=== PATIENT | female | born 1955 | race Caucasian/White ===

== ENCOUNTER 2016-04-10 08:34 | Outpatient (RCR) | payer BC ==
[~2016-04-10 08:34] MED LIST: AMBIEN CR 12.12.5 MG PO; AMBIEN10 MG PO; AMOXICILLIN 8751 TAB PO; ARIMIDEX; ARIMIDEX1 MG PO; CALCIUM WITH VI1 TA1 PO; CPAP; FASLODEX250 MG/5 M IM; FLAX OIL1000 MG PO; FLEXERIL10 MG PO; FOSAMAX PO; GLIPIZIDE10 M1 PO; GLUCOPHAGE1000 MG PO; GLUCOTROL XL10 MG PO; IBRANCE125 MG PO; LEVOTHYROXIN0.075 MG PO; MELATONIN5 M1 PO; NAPROSYN500 MG PO; OMEGA 31000 MG PO; PERCOCET 325 MG1 TA2 PO; PHENERGAN 25 TA25 MG PO; PRIL40 PO; PRILOSEC10 MG PO; SYNTHROID0.075 MG/T PO; TENORMIN 2525 MG/TAB PO; TENORMIN 5050 MG/TAB PO; VITAMIN D32000 IU PO; VITAMIND3 5000 PO; [UNRECOGNIZED DRUG - OTHER]; [UNRECOGNIZED DRUG - OTHER]
== END 2016-07-09 | disposition home or self-care (01) ==
LOC: MKS.ESL.PT
DX: I97.2 Postmastectomy lymphedema syndrome (principal); C50.412 Malignant neoplasm of upper-outer quadrant of left female breast; C77.3 Secondary and unspecified malignant neoplasm of axilla and upper limb lymph nodes

== ENCOUNTER → 2016-12-09 | Outpatient (CLI) | payer BC | LOC: COL.RAD 10:16 | DX: M17.12 Unilateral primary osteoarthritis, left knee (principal); M23.301 Other meniscus derangements, unspecified lateral meniscus, left knee; M23.304 Other meniscus derangements, unspecified medial meniscus, left knee ==

== ENCOUNTER → 2017-12-31 | Outpatient (CLI) | payer BC | LOC: MC.RAD 13:34 | DX: Z12.31 Encounter for screening mammogram for malignant neoplasm of breast (principal) ==

== ENCOUNTER → 2018-12-08 | Outpatient (CLI) | payer MEDICARE, BC | LOC: COL.RAD 07:43 | DX: C50.412 Malignant neoplasm of upper-outer quadrant of left female breast (principal); R51 Headache | CPT/HCPCS: A9585 ==

== ENCOUNTER → 2019-01-12 | Outpatient (CLI) | payer MEDICARE, BC | LOC: MC.RAD 08:42 | DX: C50.912 Malignant neoplasm of unspecified site of left female breast (principal); Z17.0 Estrogen receptor positive status [ER+] ==

== ENCOUNTER → 2020-01-14 | Outpatient (CLI) | payer MEDICARE, BC | LOC: MC.RAD 09:20 | DX: Z12.31 Encounter for screening mammogram for malignant neoplasm of breast (principal) ==

== ENCOUNTER → 2021-01-18 | Outpatient (CLI) | payer MEDICARE, BC | LOC: MC.RAD 09:41 | DX: Z12.31 Encounter for screening mammogram for malignant neoplasm of breast (principal) ==

== ENCOUNTER 2021-04-25 12:37 | Outpatient (CLI) | payer MEDICARE, BC ==
[~2021-04-25] VITALS: Ht 162.6 cm; Wt 85.9 kg
[2021-04-25] MEDS ORDERED: HALCION0.25 MG PO (13:03)
[2021-04-25] MEDS ORDERED: VITAMIN B122500 MCG SL (13:04)
[2021-04-25] MEDS ORDERED: PRAVACHOL10 MG PO (13:05)
[2021-04-25] MEDS ORDERED: REQUIP 0.5MG0.5 MG PO (13:05)
[2021-04-25] MEDS ORDERED: XYZAL5 MG PO (13:06)
[2021-04-25] MEDS ORDERED: VITAMIN C500 MG PO (13:07)
[2021-04-25] MEDS ORDERED: FEMARA PO (13:07)
[2021-04-25] MEDS ORDERED: IBRANCE125 M1 PO (13:08)
[2021-04-25] MEDS ORDERED: CALCIUM 600MG+D1 TAB PO (13:08)
[2021-04-25 13:53] VITALS: BP 135/78; PULSE 58; TEMP 97.8
== END 2021-04-25 17:56 | disposition home or self-care (01) ==
LOC: EUO 12:37
DX: C50.912 Malignant neoplasm of unspecified site of left female breast (principal); M85.80 Other specified disorders of bone density and structure, unspecified site
CPT/HCPCS: J3489

== ENCOUNTER → 2021-09-19 | Outpatient (CLI) | payer MEDICARE, BC ==
[~2021-09-19] MED LIST changes: +CALCIUM 600MG+D1 TAB PO; +FEMARA PO; +HALCION0.25 MG PO; +IBRANCE125 M1 PO; +PRAVACHOL10 MG PO; +REQUIP 0.5MG0.5 MG PO; +VITAMIN B122500 MCG SL; +VITAMIN C500 MG PO; +XYZAL5 MG PO
== END ==
LOC: COL.RAD 12:29
DX: C50.412 Malignant neoplasm of upper-outer quadrant of left female breast (principal)

== ENCOUNTER 2021-10-26 12:45 | Outpatient (RCR) | payer MEDICARE, BC | END 2021-10-28 | disposition home or self-care (01) | LOC: MKS.ESL.PT | DX: C50.412 Malignant neoplasm of upper-outer quadrant of left female breast (principal) ==

== ENCOUNTER 2022-01-23 08:05 | Outpatient (RCR) | payer MEDICARE, BC | END 2022-01-28 | disposition home or self-care (01) | LOC: MKS.ESL.PT | DX: I89.0 Lymphedema, not elsewhere classified (principal); Z85.3 Personal history of malignant neoplasm of breast; Z90.12 Acquired absence of left breast and nipple ==

== ENCOUNTER 2022-04-03 08:23 | Outpatient (RCR) | payer MEDICARE, BC ==
[2022-04-26] MEDS ORDERED: GLUCOTROL10 MG PO (08:10)
[2022-04-26] MEDS ORDERED: ELIQUIS 5MG PO (08:11)
[2022-04-26] MEDS ORDERED: VALIUM 2MG T2 MG/TAB PO (08:12)
[2022-04-26] MEDS ORDERED: TENORMIN 5050 MG/TAB PO (08:13)
[2022-04-26] MEDS ORDERED: B-121000 MCG PO (08:14)
[2022-04-26] MEDS ORDERED: CLARITIN 1010 MG/TAB PO (08:17)
== END 2022-04-30 | disposition home or self-care (01) ==
LOC: MKS.ESL.PT
DX: I89.0 Lymphedema, not elsewhere classified (principal); Z85.3 Personal history of malignant neoplasm of breast; Z90.12 Acquired absence of left breast and nipple

== ENCOUNTER → 2022-05-22 | Outpatient (CLI) | payer MEDICARE, BC ==
[~2022-05-22] VITALS: Ht 162.6 cm; Wt 86.1 kg
[~2022-05-22] MED LIST changes: +B-121000 MCG PO; +CLARITIN 1010 MG/TAB PO; +ELIQUIS 5MG PO; +GLUCOTROL10 MG PO; +VALIUM 2MG T2 MG/TAB PO
[2022-05-22 07:16] VITALS: BP 163/79; PULSE 85; TEMP 98
[2022-05-22 08:05] VITALS: BP 136/74; PULSE 83
== END ==
LOC: COL.RAD 06:45
DX: J90 Pleural effusion, not elsewhere classified (principal); C50.412 Malignant neoplasm of upper-outer quadrant of left female breast
CPT/HCPCS: 19804

== ENCOUNTER 2022-06-18 07:48 | Day surgery (SDC) | payer MEDICARE, BC ==
[~2022-06-18] VITALS: Ht 162.6 cm; Wt 81.8 kg
[2022-06-18] MEDS ORDERED: VALIUM 10MG10 MG/TAB PO (08:25)
[2022-06-18 09:26] VITALS: BP 125/58; PULSE 73; TEMP 99.8
[2022-06-18 10:58] VITALS: BP 115/61; PULSE 74; TEMP 98.7
[2022-06-18] MEDS ORDERED: ELIQUIS 5MG PO (11:03)
[2022-06-18] MEDS ORDERED: NORCO 325 MG-51 TAB PO (11:04)
[2022-06-18 11:13] VITALS: BP 100/60; PULSE 72
[2022-06-18 11:28] VITALS: BP 114/61; PULSE 70
[2022-06-18 11:43] VITALS: BP 111/64; PULSE 70
[2022-06-18 11:58] VITALS: BP 127/64; PULSE 72
--- NOTE | 2022-06-18 12:10 | NUR ---
1058 RETURNS TO ROOM 3 PER CART. DROWSY, AROUSES TO VERBAL STIMULI. FAMILIARIZED WITH SURROUNDINGS. RESP UNLABORED AT REST. O2 ON VITAL SIGNS OBTAINED. BANDAID LEFT LOWER CHEST/BACK CLEAN DRY AND INTACT. GAUZE AND BANDAID RT CHEST CLEAN DRY AND INTACT. PATIENT DENIES PAIN. HOB ELEVATED 40 DEGREES. CALL LIGHT AT SIDE. IN ROOM. 1110 AROUSES EASILY. OCCASIONAL MOIST COUGH. DENIES PAIN 1125 AWAKE, ALERT. O2 OFF. TOLERATES PO WATER WITHOUT NAUSEA. CONVERSES WITH 1140 DISCHARGE INSTRUCTIONS REVIEWED. PATIENT AND VERBALIZE UNDERSTANDING. COPY PROVIDED IN DISCHARGE FOLDER. 1155 SITS ON EDGE OF BED. DRESSES WITH ASSISTANCE FROM
== END 2022-06-18 12:10 | disposition home or self-care (01) ==
LOC: SDCO 07:48
DX: C77.3 Secondary and unspecified malignant neoplasm of axilla and upper limb lymph nodes (principal); J91.0 Malignant pleural effusion; G47.33 Obstructive sleep apnea (adult) (pediatric); Z99.81 Dependence on supplemental oxygen
CPT/HCPCS: C1788; J0690; J1644; J2250; J2704; J7120

== ENCOUNTER → 2022-06-24 | Outpatient (CLI) | payer MEDICARE, BC ==
[~2022-06-24] VITALS: Ht 162.6 cm; Wt 80.3 kg
[~2022-06-24] MED LIST changes: +NORCO 325 MG-51 TAB PO; +VALIUM 10MG10 MG/TAB PO
[2022-06-24 09:23] VITALS: BP 134/80; PULSE 70; TEMP 97.3
[2022-06-24 10:15] VITALS: BP 112/62; PULSE 68
== END ==
LOC: COL.RAD 08:36
DX: C50.412 Malignant neoplasm of upper-outer quadrant of left female breast (principal)

== ENCOUNTER → 2022-07-02 | Outpatient (CLI) | payer MEDICARE, BC ==
[~2022-07-02] VITALS: Ht 162.6 cm; Wt 79.5 kg
[2022-07-02 09:07] VITALS: BP 146/76; PULSE 77; TEMP 97.3
[2022-07-02 10:05] VITALS: BP 115/71; PULSE 73
--- NOTE | 2022-07-02 10:17 | NUR ---
DR DAVISON REMOVED 1600 CC YELLOWISH FLUID FROM LEFT LUNG.
== END ==
LOC: COL.RAD 08:28
DX: C50.412 Malignant neoplasm of upper-outer quadrant of left female breast (principal)

== ENCOUNTER → 2022-07-30 | Outpatient (CLI) | payer MEDICARE, BC ==
[~2022-07-30] VITALS: Ht 162.6 cm; Wt 74.2 kg
[2022-07-30 07:30] VITALS: BP 140/78; PULSE 83; TEMP 97.3
[2022-07-30 09:08] VITALS: BP 143/80; PULSE 87
== END ==
LOC: COL.RAD 07:30
DX: C50.412 Malignant neoplasm of upper-outer quadrant of left female breast (principal); Z98.890 Other specified postprocedural states

== ENCOUNTER → 2022-08-06 | Outpatient (CLI) | payer MEDICARE, BC ==
[~2022-08-06] VITALS: Ht 162.6 cm; Wt 74.5 kg
[2022-08-06 09:09] VITALS: BP 121/70; PULSE 79; TEMP 98
[2022-08-06 10:20] VITALS: BP 139/77; PULSE 76
== END ==
LOC: COL.RAD 08:43
DX: J90 Pleural effusion, not elsewhere classified (principal); C50.412 Malignant neoplasm of upper-outer quadrant of left female breast; Z98.890 Other specified postprocedural states
CPT/HCPCS: 19804

== ENCOUNTER → 2022-08-27 | Outpatient (CLI) | payer MEDICARE, BC ==
[~2022-08-27] VITALS: Ht 162.6 cm; Wt 73.7 kg
[2022-08-27 09:10] VITALS: BP 126/80; PULSE 74; TEMP 97.7
[2022-08-27 10:05] VITALS: BP 143/77; PULSE 76
== END ==
LOC: COL.RAD 08:46
DX: C50.412 Malignant neoplasm of upper-outer quadrant of left female breast (principal); J90 Pleural effusion, not elsewhere classified

== ENCOUNTER → 2022-12-10 | Outpatient (CLI) | payer MEDICARE, BC ==
[~2022-12-10] VITALS: Ht 162.6 cm; Wt 75.0 kg
[~2022-12-10] MED LIST changes: +IRON TABLETS325 MG PO; +NEURONTIN100 MG/CAP PO
[2022-12-10 08:56] VITALS: BP 148/71; PULSE 90; TEMP 98
--- NOTE | 2022-12-10 09:27 | NUR ---
Pt returns to holding area. Not enough fluid to drain at this time. Pt dressed and out to car ambulatory.
== END ==
LOC: COL.RAD 08:40
DX: C50.412 Malignant neoplasm of upper-outer quadrant of left female breast (principal); J90 Pleural effusion, not elsewhere classified

== ENCOUNTER → 2022-12-17 | Outpatient (CLI) | payer MEDICARE, BC ==
[~2022-12-17] VITALS: Ht 162.6 cm; Wt 74.0 kg
[2022-12-17 08:51] VITALS: BP 135/68; PULSE 85; TEMP 98.1
[2022-12-17 10:35] VITALS: BP 136/80; PULSE 81
== END ==
LOC: COL.RAD 08:37
DX: C50.412 Malignant neoplasm of upper-outer quadrant of left female breast (principal)

== ENCOUNTER → 2023-01-21 | Outpatient (CLI) | payer MEDICARE, BC ==
[~2023-01-21] VITALS: Ht 162.6 cm; Wt 75.0 kg
[~2023-01-21] MED LIST changes: +L-GLUTAMINE500 M5 PO; +PEPCID AC 10MG10 MG PO
[2023-01-21 09:00] VITALS: BP 135/70; PULSE 87; TEMP 98.6
--- NOTE | 2023-01-21 10:05 | NUR ---
No fluid to drain. Pt dressed and out to car per ambulation. Procedure canceled.
== END ==
LOC: CANSCHCLI → COL.RAD 08:40
DX: C50.412 Malignant neoplasm of upper-outer quadrant of left female breast (principal); J90 Pleural effusion, not elsewhere classified

== ENCOUNTER 2023-03-19 09:00 | Inpatient (IN) | payer MEDICARE, BC ==
[2023-03-19] VITALS (527 sets, daily range): BP systolic 116–157; BP diastolic 38–113; PULSE 63–84; TEMP 102–102.4; O2SAT 91–100
[~2023-03-19] VITALS: Ht 162.6 cm; Wt 76.7 kg
[~2023-03-19 09:00] MED LIST changes: -GLUCOPHAGE1000 MG PO; +GLUCOPHAGE500 MG/TAB PO; +TRODELVY180 MG IV
[2023-03-19 09:39] LABS: BASO % 0.5 % (0.0-2.0); EOS % 0.3 % (0.0-4.0); GRAN # 4.1 K/mm3 (1.4-6.5); GRAN % 71.2 % (42.2-75.2); LYMPH # 1.2 K/mm3 (1.2-3.4); LYMPH % 20.3 % (20.0-51.0); MEAN CELL VOLUME 106 fl (80.0-100.0); MEAN CORPUSCULAR HGB CONC 33 g/dl (33.0-37.0); MEAN PLATELET VOLUME 9.6 fl (7.4-10.4); MONO # 0.4 K/mm3 (0.1-0.6); MONO % 7.2 % (1.7-9.3); PLATELET COUNT 237 K/mm3 (130-400); RED BLOOD COUNT 2.73 M/mm3 (4.10-5.30); REDCELL DISTRIBUTION WIDTH-CV 16.1 % (11.5-14.5)
[2023-03-19 09:47] LABS: PROTHROMBIN TIME 11.1 SECONDS (9.7-12.8)
[2023-03-19 09:59] LABS: ALANINE AMINOTRANSFERASE 18 U/L (0-55); ALBUMIN 3.2 gm/dL (3.4-4.8); ALKALINE PHOSPHATASE 64 U/L (40-150); ANION GAP 13 mmol/L (7-16); AST,SGOT 21 U/L (5-34); BILIRUBIN,TOTAL 0.4 mg/dL (0.2-1.2); BLOOD UREA NITROGEN 19 mg/dL (10-20); CALCIUM 9.1 mg/dL (8.4-10.2); CARBON DIOXIDE 22 mmol/L (23-31); CHLORIDE 107 mmol/L (98-107); CREATININE, serum 0.79 mg/dL (0.57-1.11); GLUCOSE 130 mg/dL (70-99); HEMATOCRIT 28.8 % (37.0-47.0); HEMOGLOBIN 9.4 g/dl (12.5-16.0); LIPASE 13 U/L (8-78); MEAN CORPUSCULAR HEMOGLOBIN 34 pg (27-31); POTASSIUM 3.6 mmol/L (3.5-4.5); SODIUM 142 mmol/L (136-145); TOTAL PROTEIN 5.9 gm/dL (6.2-8.1)
[2023-03-19 10:08] LABS: TROPONIN-I < 0.010 ng/mL (0.00-0.033)
[2023-03-19 11:53] LABS: COLLECTION METHOD IN
[2023-03-19 12:12] LABS: PH 5.5 (5.0-8.5); URINE APPEARANCE Clear (CLEAR/HAZY); URINE BLOOD Negative (NEGATIVE); URINE COLOR Yellow (YELLOW); URINE GLUCOSE Negative (NEGATIVE); URINE KETONE Negative (NEGATIVE); URINE NITRATE Negative (NEGATIVE); URINE PROTEIN(semi-quant) Negative (NEGATIVE); URINE UROBILINOGEN 0.2 E.U/dL (0.2-1.0)
[2023-03-19 12:13] LABS: URINE BACTERIA None Seen /hpf (NONE SEEN); URINE RBC 0-2 /hpf (0-2)
[2023-03-19 12:26] LABS: SQUAMOUS EPITHELIAL None Seen /hpf (0-10)
[2023-03-19 14:03] LABS: ARTERIAL BLOOD GAS HCO3 24.2 meq/L (22-26); ARTERIAL BLOOD GAS PCO2 27.5 mmHg (35-45); ARTERIAL BLOOD GAS pH 7.56 (7.35-7.45)
[2023-03-19 14:04] LABS: ARTERIAL BLD GAS O2 SATURATION 99.1 % (92-100); ARTERIAL BLD GAS TCO2 CT 25.1; ARTERIAL BLOOD GAS BASE EXCESS 2.6 (-2-2)
--- NOTE | 2023-03-19 17:08 | NUR ---
1250 PT ADMITTED FROM ED. PT ON VENTILATOR UPON ADMISSION, 7.5 ETT MEASURES 22CM AT LIP, TV 450, PEEP 5, FIO2 40%, RATE 16. OG IN PLACE MEASURES 58 CM AT LIP. PROPOFOL INFUSING TO R UPPER CHEST NABIL CATH AT 10 MCG/KG/MIN. FENTANYL DRIP AND SOFT WRIST RESTRAINTS INITIATED UPON ARRIVAL PT IS VERY AGITATED AND UNABLE TO FOLLOW DIRECTIONS. VEGAS CATHETER IN PLACE TO DEPENDENT DRAINAGE. PICC LINE PLACED TO R UPPER ARM BY AIVS NURSE. 1700 SEDATION VACATION NOT APPRORIATED AT THIS TIME. SEDATION TO REMAIN AT CURRENT LEVELS PER DR CRAIG.
--- NOTE | 2023-03-19 19:35 | NUR ---
BEDSIDE REPORT COMPLETED WITH DAUGHTER AND AT PT'S SIDE. IV INFUSIONS VERIFIED AND COOLING BLANKET IN PLACE. BED IN LOW POSITION AND CALL LIGHT WITHIN REACH. CARE PLAN REVIEWED WITH FAMILY AND ALL QUESTIONS ANSWERED AT THIS TIME. NO ADDITIONAL NEEDS ANTICIPATED OR REQUESTED.
--- NOTE | 2023-03-19 20:00 | NUR ---
PT RESTING IN BED AT THIS TIME WITH EYES CLOSED AND COOLING BLANKET ON. ASSESSMENTS COMPLETED, BED IN LOW POSITION AND CALL LIGHT WITHIN REACH. TEMP IS 102.4 AT THIS TIME AND ALL OTHER VS ARE WNL. NO ADDITIONAL NEEDS ANTICIPATED AT THIS TIME.
[2023-03-19 20:55] LABS: ARTERIAL BLD GAS O2 SATURATION 96.6 % (92-100); ARTERIAL BLD GAS TCO2 CT 24.1; ARTERIAL BLOOD GAS BASE EXCESS 1.5 (-2-2); ARTERIAL BLOOD GAS HCO3 23.3 meq/L (22-26); ARTERIAL BLOOD GAS PCO2 27.5 mmHg (35-45); ARTERIAL BLOOD GAS PO2 83.6 mmHg (80-100); ARTERIAL BLOOD GAS pH 7.55 (7.35-7.45)
--- NOTE | 2023-03-19 21:58 | NUR ---
ABG DONE AT 2049 WAS RESPIRATORY ALKALOSIS PH 7.55/ PCO2 28/ PO2 84 /HCO3 23 BE 1.5 CALLED RESULTS TO CONNOR TYLER APRN. DECREASED RR TO FROM 16-12 STILL REMAINS ON VT450 30% +5PEEP.
[2023-03-20] VITALS (1047 sets, daily range): BP systolic 95–125; BP diastolic 40–71; PULSE 54–80; TEMP 97.8–101.2; O2SAT 91–100
--- NOTE | 2023-03-20 01:49 | NUR ---
WHILE IN PATIENT'S ROOM REPLACING SUCTION CANISTERS AND TUBING, THE VENTILATOR BEGAN TO ALARM. PT NOTED TO BE BREATHING OVER THE CONTROLLED SETTING. AFTER LEAVING THE ROOM FOR 3-5 MIN, PATIENT NOTED TO BE RESTING AND VENTILATOR SETTINGS CONTINUE PROGRAMMED.
--- NOTE | 2023-03-20 02:55 | NUR ---
VENTILATOR ALARMING WHILE RN IS IN THE ROOM. RT CALLED TO ROOM AND CONFIRMS PT IS BREATHING OVER THE CONTROLLED SETTINGS AT THIS TIME. STAFF FINISHED CARES AND LEFT THE ROOM, AND ALARMING STOPPED. VS REMAIN WNL
[2023-03-20 04:37] LABS: MEAN CORPUSCULAR HGB CONC 34 g/dl (33.0-37.0); MEAN PLATELET VOLUME 9.7 fl (7.4-10.4); PLATELET COUNT 197 K/mm3 (130-400); RED BLOOD COUNT 2.46 M/mm3 (4.10-5.30); REDCELL DISTRIBUTION WIDTH-CV 15.6 % (11.5-14.5)
[2023-03-20 04:38] LABS: HEMATOCRIT 24.9 % (37.0-47.0); HEMOGLOBIN 8.5 g/dl (12.5-16.0); MEAN CELL VOLUME 101 fl (80.0-100.0); MEAN CORPUSCULAR HEMOGLOBIN 35 pg (27-31)
[2023-03-20 05:15] LABS: ALBUMIN 2.7 gm/dL (3.4-4.8); BILIRUBIN,TOTAL 0.2 mg/dL (0.2-1.2); CALCIUM 7.6 mg/dL (8.4-10.2); CREATININE, serum 0.73 mg/dL (0.57-1.11); POTASSIUM 3.7 mmol/L (3.5-4.5); TOTAL PROTEIN 5.3 gm/dL (6.2-8.1)
[2023-03-20 05:20] LABS: ARTERIAL BLD GAS O2 SATURATION 94.8 % (92-100); ARTERIAL BLD GAS TCO2 CT 23.4; ARTERIAL BLOOD GAS BASE EXCESS -1.3 (-2-2); ARTERIAL BLOOD GAS HCO3 22.3 meq/L (22-26); ARTERIAL BLOOD GAS PCO2 33.4 mmHg (35-45); ARTERIAL BLOOD GAS PO2 75.8 mmHg (80-100); ARTERIAL BLOOD GAS pH 7.44 (7.35-7.45)
[2023-03-20 06:46] LABS: BAND 2 % (0-10); LYMPHOCYTE 8 % (20.0-51.0); NEUTROPHILS 88 % (42.0-75.2); PLATELET ESTIMATE NORMAL (NORMAL)
--- NOTE | 2023-03-20 09:03 | NUR ---
smooth and burr worker composites called pt's , Alexander [phone] due to patient being intubated and in isolation. Spouse confirmed they live together in [place]. Pt sees Dr. Delgadillo and obtains medications from [facility]'s pharmacy with no difficulties. Pt uses a CPAP at home for DME and is independent with ADLS previosuly. She does not have a DPOA-HC, is already aware he is DPOA-HC. Patient was previously at home and independent.
--- NOTE | 2023-03-20 12:00 | NUR ---
Palliative care consult completed with patient's family at this time. Patient in Radiology for procedures. Met with patient's (Alexander) & daughters (Trang & Mago) with cattle care worker (Brando). Discussed current clinical status based on provider notes, pending tests, current treatments & plan of care. Discussed acute mental status changes resulting in ED visit & the need for ventilator. Family states that patient did not have a living will. Patient was fully independent in ADLs & was still able to be active in her hobbies. Discussed a meaningful recovery for the patient. Discussed goal to get patient off the ventilator, but if patient is not able to wean off the ventilator what decisions the family would need to make on her behalf. Family adamant that patient would not want to be on a ventilator prison. Adavised family that once LP & MRI results are received that there may be some hard decisions to make & they understood that with stating many times "she still has cancer" that requires treatment. Family asked about comfort care options should test results not be good; options discussed. All questions answered. did ask for client relationship consultant to see patient & that the patient is a Worship; Project Program Manager Snehal called after the meeting.
[2023-03-20] MEDS ORDERED: COMPAZINE 110 MG/TAB PO (12:29)
[2023-03-20] MEDS ORDERED: GLUCOPHAGE XR500 M1 PO (12:30)
[2023-03-20] MEDS ORDERED: REQUIP 1MG T1 MG/TAB PO (12:31)
[2023-03-20] MEDS ORDERED: GLUCOTROL XL10 MG PO (12:32)
[2023-03-20 13:04] LABS: GLUCOSE,CSF 97 mg/dL (40-70); TOTAL PROTEIN,CSF 63 mg/dL (15-45)
[2023-03-20 13:24] LABS: CSF APPEARANCE CLEAR; CSF COLOR COLORLESS; CSF RBC 108 /mm3 (0-0)
--- NOTE | 2023-03-20 13:40 | NUR ---
steam trap worker attended a palliative consult with RN Reversing Mill Roller Sera, patient's , Boom, and two daughters. Discussion was had about patient's current status, pending tests to determine illness, and future plans for care. The family was in agreement that patient would not want to be on the ventilator long-term. They all wanted to wait on the Lumbar Puncture results and MRI results before deciding. Alexander reports that patient was made a DNR this morning after discussing with Dr. Lazaro Fortune. When hospice was discussed as one of the many options, the family voiced they would not feel comfortable or able to provide hospice at their home. GEORGES informed them that if they wanted, they could tour the [facility] to view the inside. Alexander informed GEORGES and Sera that pt is Yazidi and would like the computer operations technician to see patient. Sera followed up on this after the meeting.
[2023-03-20 13:46] LABS: CSF MONONUCLEAR 91 % (70-100); CSF POLYMORPHONUCLEAR 9 % (0-6)
--- NOTE | 2023-03-20 14:02 | NUR ---
Initial visit was with family offering comfort and acknowledging grief and saddness of what is to come for their mother; Gail. Chief Engineer Drilling And Recovery called Estimate Clerk according to their wishes and set up a time for Father Saroj to come tomorrow to administer Last Rites. Later Chief Engineer Drilling And Recovery met with family at Gail's bedside and said a prayer for Gail and her family including them in "The Lord's Prayer." They were pleased that Father Saroj will come tomorrow. Chief Engineer Drilling And Recovery offered God's blessings.
--- NOTE | 2023-03-20 18:56 | NUR ---
1050 CONSENTS SIGNED FOR LUMBAR PUNCTION. 1100 PT LEFT UNIT FOR MRI, THIS NURSE AND RT ACCOMPANIED PT TO MRI. PT THEN TRANSFERED TO X-RAY FOR LP. 1300 RETURNED TO UNIT.
--- NOTE | 2023-03-20 20:00 | NUR ---
PT RESTING WITH FAMILY AT HER SIDE. REVIEWED PLAN OF CARE WITH FAMILY AND LL QUESTIONS ANSWERED AT THIS TIME. ASSESSMENTS COMPLETED AT THIS TIME. CALL LIGHT WITHIN REACH AND PT MOVED HEAD TO VOICE AND OPENS EYES, BUT DOES NOT FOLLOW COMMANDS. BED IN LOW POSITION AND VSS WITH BRADYCARDIA NOTED AND ATENOLOL HELD, CONNOR TYLER APRN NOTIFIED.
[2023-03-21] VITALS (1243 sets, daily range): BP systolic 94–145; BP diastolic 47–78; PULSE 50–113; TEMP 36.5–37.3; O2SAT 91–100
--- NOTE | 2023-03-21 00:38 | NUR ---
0000 ASSESSMENTS COMPLETED AND VENT BEGAN TO ALARM, PT ALERT AND ABLE TO TURN HER HEAD TO SOUND OF VOICE AND STARTED MOVING HER LEGS. JAYSON MCCARTHY, NOTIFIED AND FENTANYL ORDERED. FENTANYL DRIP INCREASED AT THIS TIME AND TUBE FEEDING ADJUSTED PER ORDER. BED REMAINS IN LOW POSITION AND NO ADDITIONAL NEEDS ANTICIPATED AT THIS TIME.
[2023-03-21 04:45] LABS: GRAN # 3.1 K/mm3 (1.4-6.5); LYMPH # 0.4 K/mm3 (1.2-3.4); LYMPH % 11.4 % (20.0-51.0); MEAN CELL VOLUME 99 fl (80.0-100.0); MEAN CORPUSCULAR HGB CONC 35 g/dl (33.0-37.0); MEAN PLATELET VOLUME 9.7 fl (7.4-10.4); MONO # 0.2 K/mm3 (0.1-0.6); MONO % 4.1 % (1.7-9.3); PLATELET COUNT 196 K/mm3 (130-400); RED BLOOD COUNT 2.47 M/mm3 (4.10-5.30); REDCELL DISTRIBUTION WIDTH-CV 15.6 % (11.5-14.5)
[2023-03-21 04:57] LABS: HEMATOCRIT 24.4 % (37.0-47.0); HEMOGLOBIN 8.5 g/dl (12.5-16.0); MEAN CORPUSCULAR HEMOGLOBIN 34 pg (27-31)
[2023-03-21 05:00] LABS: ALBUMIN 2.6 gm/dL (3.4-4.8); BILIRUBIN,TOTAL 0.2 mg/dL (0.2-1.2); CALCIUM 7.9 mg/dL (8.4-10.2); CREATININE, serum 0.72 mg/dL (0.57-1.11); POTASSIUM 3.5 mmol/L (3.5-4.5); TOTAL PROTEIN 5.1 gm/dL (6.2-8.1)
[2023-03-21 05:05] LABS: ARTERIAL BLD GAS O2 SATURATION 97.1 % (92-100); ARTERIAL BLD GAS TCO2 CT 24.8; ARTERIAL BLOOD GAS BASE EXCESS 0.9 (-2-2); ARTERIAL BLOOD GAS HCO3 23.9 meq/L (22-26); ARTERIAL BLOOD GAS PCO2 31.8 mmHg (35-45); ARTERIAL BLOOD GAS PO2 101.6 mmHg (80-100); ARTERIAL BLOOD GAS pH 7.49 (7.35-7.45)
--- NOTE | 2023-03-21 05:39 | NUR ---
SEDATION VACATION NOT COMPLETED DUE TO RASS SCORE FLUCTUATION OVER THE SHIFT. PATIENT AWAKE AND ABLE TO LOOK TOWARDS VOICE DURING SHIFT AND MEDICATIONS WERE TITRATED TO GAIN GOAL SEDATION EFFECT. CONNOR TYLER APRN NOTIFIED OF EVENTS.
--- NOTE | 2023-03-21 07:00 | NUR ---
Report recevied from ROCIO Feliz. Reviewed labs and IV gtts. POC reviewed. Pt intubated and sedated. Restraints in placed. Will continue with POC.
--- NOTE | 2023-03-21 11:00 | NUR ---
Pt opening eyes and looking around. Pt able to follow commands at this time and nod head appropirately. Updated Dr. Fortune. Pt restless and precedex orderd by Dr. Fortune.
--- NOTE | 2023-03-21 11:53 | NUR ---
Follow-up visit; spoke with patient's family and looked in on Gail whom daughter stated was responding to them a bit more today than yesterday when Abrasive Mixer called , by their request. Daughter was wondering if she should have requested though Abrasive Mixer said will pray accordingly. She thanked Abrasive Mixer for looking in on mom.
--- NOTE | 2023-03-21 17:22 | NUR ---
Sedation vacation not preformed, pt wakes up and follows commands. Plans to wean seation in AM for breathing trial.
[2023-03-22] VITALS (1229 sets, daily range): BP systolic 102–191; BP diastolic 50–93; PULSE 53–101; TEMP 36.7–36.9; O2SAT 77–100
[2023-03-22 04:50] LABS: ARTERIAL BLD GAS O2 SATURATION 94.5 % (92-100); ARTERIAL BLD GAS TCO2 CT 25.3; ARTERIAL BLOOD GAS HCO3 24.1 meq/L (22-26); ARTERIAL BLOOD GAS PCO2 41.6 mmHg (35-45); ARTERIAL BLOOD GAS PO2 76.8 mmHg (80-100); ARTERIAL BLOOD GAS pH 7.38 (7.35-7.45)
[2023-03-22 05:41] LABS: BASO % 0.2 % (0.0-2.0); GRAN # 4.3 K/mm3 (1.4-6.5); GRAN % 84.2 % (42.2-75.2); LYMPH # 0.4 K/mm3 (1.2-3.4); LYMPH % 8.5 % (20.0-51.0); MEAN CELL VOLUME 103 fl (80.0-100.0); MEAN CORPUSCULAR HGB CONC 34 g/dl (33.0-37.0); MEAN PLATELET VOLUME 9.8 fl (7.4-10.4); MONO # 0.3 K/mm3 (0.1-0.6); MONO % 5.9 % (1.7-9.3); PLATELET COUNT 179 K/mm3 (130-400); RED BLOOD COUNT 2.37 M/mm3 (4.10-5.30); REDCELL DISTRIBUTION WIDTH-CV 15.5 % (11.5-14.5)
[2023-03-22 05:46] LABS: HEMATOCRIT 24.5 % (37.0-47.0); HEMOGLOBIN 8.2 g/dl (12.5-16.0); MEAN CORPUSCULAR HEMOGLOBIN 35 pg (27-31)
[2023-03-22 06:00] LABS: ALBUMIN 2.4 gm/dL (3.4-4.8); BILIRUBIN,TOTAL 0.1 mg/dL (0.2-1.2); CALCIUM 7.6 mg/dL (8.4-10.2); CREATININE, serum 0.72 mg/dL (0.57-1.11); POTASSIUM 3.8 mmol/L (3.5-4.5); TOTAL PROTEIN 4.9 gm/dL (6.2-8.1)
--- NOTE | 2023-03-22 06:56 | NUR ---
PATIENT REMAINS STABLE ON ROUNDS. SEDATION LIGHTENED OVER NIGHT. NO SIGN OF DISTRESS AT THIS TIME.
--- NOTE | 2023-03-22 07:00 | NUR ---
Report received from ROCIO Mercedes. Reviewed gtts and labs. Tube feeding off and sedation on standby. Pt drowsy but opens eyes and can follow commands. Will notify RT when pt more awake and can try cpap. Will continue with POC.
--- NOTE | 2023-03-22 07:55 | NUR ---
pt placed on cpap by RT. pt tolearting cpap well. Sedation is off. Precedex is on at low dose to halp with anxiety. cpap for 1 hour as tolerated. Will continue with POC.
--- NOTE | 2023-03-22 09:21 | NUR ---
PT EXTUBATED @ 0912 TO 3 LPM OM PER
--- NOTE | 2023-03-22 09:25 | NUR ---
Pt tolerated cpap without issues. Dr. Fortune at bedside and ordered extubation. Pt extubated at 0912 to 3L oxymask. Pt able to state name. Voice is soft. Encouraged pt to rest voice for a while. Pt verbalized understanding. All sedation off including precedex. IVF and antibiotics infusing. OG removed with extubation. Suction within reach. Call light within reach. Will continue with POC.
--- NOTE | 2023-03-22 14:22 | NUR ---
Pt is confused. Pt about to state date but struggles with year. Pt knows its 2022 and february and she is in a hospital in [place], but unsure of why. Pt states she is seeing mist and lines on the wall. Pt easily redirectable at this time. Family at bedside. Pt on 3LNC. Lungs are CTA. Pt voice is hoarse and has hoarse cough. Denies any Shortness of breath. Call light within reach. Will continue with POC.
--- NOTE | 2023-03-22 16:38 | NUR ---
Pt having some nausea and vomiting. yellow/bile colored vomit noted. Zofran admistered at 1415. Pt still having some nausea and vomiting. Notified Dr. Fortune and new orders placed.
--- NOTE | 2023-03-22 20:41 | NUR ---
WAS AT THE BEDSIDE AT THE START OF MY SHIFT. HE HAS GONE HOME FOR THE NIGHT. PT IS RESTING QUIETLY AT THIS TIME. NAUSEA HAS IMPROVED SINCE COMPAZINE WAS GIVEN. STATES PT TAKES COMPAZINE AT HOME. STATES THAT TWITCHING STARTED WITH HER LAST CHEMO. NO SIGN OF DISTRESS AT THIS TIME.
[2023-03-23] VITALS (760 sets, daily range): BP systolic 125–167; BP diastolic 51–73; PULSE 55–78; TEMP 98.2–99.4; O2SAT 76–99
--- NOTE | 2023-03-23 06:37 | NUR ---
PT NAUSEATED AND HAD EMESIS OVERNIGHT. SYNTHROID HELD THIS MORNING. PT MAY NEED EVALUATED FOR ASPIRATION. PT HAS SPASTIC/JERKY MOTIONS THAT STARTED AFT HER LAST CHEMO ACCORDING TO THE . STABLE ON ROUNDS. NO SIGN OF DISTRESS AT THIS TIME.
--- NOTE | 2023-03-23 07:45 | NUR ---
Patient resting in bed; Awake and alert. Responds appropriately to verbal commands, and able to answer most orientation questions appropriately. Patient's movements are slightly spastic, however, able to move all extremieites without difficulty. VS stable. Call light left within reach.
[2023-03-23 07:54] LABS: CREATININE, serum 0.61 mg/dL (0.57-1.11); POTASSIUM 3.2 mmol/L (3.5-4.5)
--- NOTE | 2023-03-23 13:00 | NUR ---
TYREL ARRIVED FROM ICU, VSS. PATIENTS AT BEDSIDE, PATIENT DENIES ANY NEEDS OR COMPLIANTS AT THIS TIME. CALL LIGHT WITHIN REACH, FALL PRECAUTIONS IN PLACE.
--- NOTE | 2023-03-23 13:10 | NUR ---
Transfered up to medical floor via wheelchair. Two assist required, but tolerated transfer well. Met tech in room 355 upon arrival.
--- NOTE | 2023-03-23 16:00 | NUR ---
PATIENT VEGAS CATHETER REMOVED, PATIENT TOLERATED WELL.
--- NOTE | 2023-03-23 18:48 | NUR ---
PATIENT IS A 1 ASSIST TO THE COMMODE. SHE IS STILL UNDSTEADY ON HER FEET AND DIZZY WHEN UP. PATIENTS FAMILY AT BEDSIDE. PATIENT HAS NO FURTHER NEEDS OR COMPLAINTS AT THIS TIME.
[2023-03-24] VITALS (7 sets, daily range): BP systolic 144–171; BP diastolic 46–62; PULSE 55–80; TEMP 97.1–98.8
--- NOTE | 2023-03-24 05:20 | NUR ---
ASSESSMENT COMPLETE FOR INFLATABLE BUILDINGS LAMINATOR. PT HAD A UNWITNESSED FALL. PT SUSTAINED AN ABRASION TO RIGHT KNEE. PT DENIED HITTING HER HEAD. VSS. HOSPITALIST, LONG TERM, CHARGE NURSE AND PT'S CALLED. HOSPITALIST TO BEDSIDE TO ASSESS PT. NO NEW ORDERS AT THIS TIME. PT DENIED PAIN OR ANY OTHER INJURIES. PT DENIED CHEST PAIN, PALPITATIONS, SOB, N,V,D OR DIZZINESS. FALL PRECAUTIONS IN PLACE. BED ALARM ON. CALL LIGHT WITHIN REACH.
--- NOTE | 2023-03-24 07:14 | NUR ---
PATIENT AWAKE AND ALERT, RESTING IN BED. PATIENT DENIES ANY NEEDS OR COMPLAINTS AT THIS TIME. FALL PRECAUTIONS IN PLACE, CALL LIGHT WITHIN REACH.
[2023-03-24 07:54] LABS: MEAN CELL VOLUME 100 fl (80.0-100.0); MEAN CORPUSCULAR HGB CONC 35 g/dl (33.0-37.0); MEAN PLATELET VOLUME 9.6 fl (7.4-10.4); PLATELET COUNT 217 K/mm3 (130-400); RED BLOOD COUNT 2.47 M/mm3 (4.10-5.30); REDCELL DISTRIBUTION WIDTH-CV 15.6 % (11.5-14.5)
[2023-03-24 08:09] LABS: HEMATOCRIT 24.6 % (37.0-47.0); HEMOGLOBIN 8.6 g/dl (12.5-16.0); MEAN CORPUSCULAR HEMOGLOBIN 35 pg (27-31)
[2023-03-24 08:12] LABS: ALBUMIN 2.4 gm/dL (3.4-4.8); BILIRUBIN,TOTAL 0.3 mg/dL (0.2-1.2); CALCIUM 8.5 mg/dL (8.4-10.2); CREATININE, serum 0.57 mg/dL (0.57-1.11); MAGNESIUM 1.5 mg/dL (1.6-2.6); PHOSPHOROUS 2.9 mg/dL (2.3-4.7); POTASSIUM 3.3 mmol/L (3.5-4.5); TOTAL PROTEIN 5.1 gm/dL (6.2-8.1)
--- NOTE | 2023-03-24 12:42 | NUR ---
MD INFORMED PATIENT COMPLAINING OF A HEADACHE. TO PLACE ORDER
--- NOTE | 2023-03-24 14:56 | NUR ---
PHYSICAN INFORMED PATIENT STILL EXPIERNECING A SEVER HEADACHE, PATIENT THINKS SHE HAS A MIGHRAIN. ONE NORCO AND 100MG TYLENOL HAS NOT HELPED WITH THE PAIN. TORB OXYCODONE 5MG TABLET PO X1.
--- NOTE | 2023-03-24 17:00 | NUR ---
PATIENT DEACCESSED HER PORT, BY ACCIDENTLY PULLING IT OUT. NOITIFIED. ALSO INFORMED PER FAMILY MEMBER PATIENT HAS STATED SHE SEES A DOG IN HER ROOM, BARKING AT HER.
--- NOTE | 2023-03-24 20:05 | NUR ---
Did give Reglan IV for nause/vomiting at this time-- just ate some supper of sandwich and applesause and immediately started vomiting-
--- NOTE | 2023-03-24 20:30 | NUR ---
Initial shift assessment done- at bedside, pt is alert/tentative, slow to respond at times, when asked birthday did not know the year/ o2 at 1L/nc with sats 93-95%, on room air was 85%,,, Up to BSC with 2 assists/very weak and does not always follow commands/at times more alert than others. PICC to EL with NS ay 75cc/hr, Tele on SB/ST. Bed alarm on, call light in reach- does not ever use the call light- just gets up!
--- NOTE | 2023-03-24 21:45 | NUR ---
Patient needing to get up to BSC with 2 assists- not really following commands/looking dazed defintitely confused- back to bed,, all vitals stable, o2 95% on the 1L/nc, wants to just sleep-- will continue to assess.
--- NOTE | 2023-03-25 00:05 | NUR ---
Up to BSC, more alert now//following commands and oriented to person place and approx time-- denies any pain. Denies nausea.
[2023-03-25 04:09] VITALS: BP 125/68; PULSE 65; TEMP 97.3
--- NOTE | 2023-03-25 06:25 | NUR ---
Did sleep for a few hours. VSS. Was up to BSC every hour during the night-- had over 3000cc out of urine this shift. Alert this am, in good spirits, talkative, overall oriented.
--- NOTE | 2023-03-25 07:00 | NUR ---
PATIENT AWAKE AND ALERT, RESTING IN BED. PATIENTS DAUGHTER AT BEDSIDE. PATIENT DENIES ANY NEEDS OR COMPLAINTS AT THIS TIME. FALL PRECAUTIONS IN PLACE. BED ALARM ON.
[2023-03-25 08:20] VITALS: BP 150/61; PULSE 63; TEMP 98.8
[2023-03-25 11:20] VITALS: BP 145/63; PULSE 99; TEMP 98.5
--- NOTE | 2023-03-25 13:00 | NUR ---
PATIENT AWAKE AND ALERT,RESTING IN BED. PATIENT DENIES ANY NEEDS OR COMPLAINTS AT THIS TIME. PATIETNS AT BEDSIDE. CALL LIGHT WTIHIN REACH, BED ALARM ON, FALL PRECAUTIONS IN PLACE.
[2023-03-25 16:11] VITALS: BP 142/60; PULSE 73; TEMP 98.2
--- NOTE | 2023-03-25 17:30 | NUR ---
PATIENT AWAKE AND ALERT, SITTING UP IN BED. PATEINTS AT BEDSIDE, NO NEEDS OR COMPLAINTS AT THIS TIME. FALL PRECAUTIONS IN PLACE.
--- NOTE | 2023-03-25 20:00 | NUR ---
UPON SHIFT ASSESSMENT, COLLINS WAS AWAKE AND HAD BEDSIDE. SHE IS AXO X 3 TO SELF, PLACE AND DX, HOWEVER, STATES THAT IT'S DIFFICULT FOR HER TO COMPREHEND HOW "...THREE DAYS AGO I WAS SOMEWHERE ELSE." SHE DENIES SOA AND CHEST PAIN. O2 NC AT 1L. VSS ARE WNL AND TELE IS NS. CALL LIGHT WITHIN REACH AND BED ALARM ON.
[2023-03-25 20:13] VITALS: BP 144/62; PULSE 75; TEMP 98.5
[2023-03-25 23:53] VITALS: BP 127/83; PULSE 66; TEMP 98.5
[2023-03-26 04:06] VITALS: BP 137/64; PULSE 66; TEMP 98.1
--- NOTE | 2023-03-26 05:50 | NUR ---
PATIENT HAD MILD NOSE BLEED. REMOVED NC O2 1L, PATIENT SAT STABLE AT 94%. WILL REASSESS.
--- NOTE | 2023-03-26 06:00 | NUR ---
THROUGH THE NIGHT, COLLINS REMAINED STABLE WITH NO EMERGENT STATUS CHANGES. SHE WAS REMOVED FROM 1L NC O2 AND HER O2 SAT IS @ 94% ON RA SHE REMAINED AXO X 3 WITH 1 OCCASION ON MILD CONFUSION (TIME LAPSE R/T ICU TRANSFER). VSS ARE WNL, NS ON TELE. BED ALARM ON, CALL LIGHT WITHIN REACH
[2023-03-26 07:54] VITALS: BP 150/69; PULSE 73; TEMP 98.4
--- NOTE | 2023-03-26 09:30 | NUR ---
PT SITTING IN CHAIR UPON ENTERING, AT BEDSIDE. ASSESSMENT DONE, MEDS GIVEN PER ORDER. PT ORIENTED TO PERSON, PLACE AND TIME BUT SOME CONFUSED SPEECH NOTED WHEN PT TALKING TO . DURING THE CONFUSED SPEECH STATES "SHES STILL A LITTLE OFF". PT ON ROOM AIR, DENIES PAIN AT THIS TIME AND HAS A LEFT CHEST PORT THAT IS NOT ACCESSED. PT HAS A CLAMPED DUAL LUMEN PICC TO RIGHT UPPER ARM, BOTH PURPLE AND RED PORTS FLUSH WELL WITH BLOOD RETURN. PTS REPORTS A RECENT FALL DURING PTS HOSPITAL STAY HERE AND PT HAS AN ABRASION TO RIGHT KNEE AND A BRUISE TO LEFT KNEE. PTS LUNG BASES DIMINISHED BILATERALLY. PTS LEFT EYE IS TWITCHING AND WHEN ASKED ABOUT IT PT STATES THAT IT IS NORMAL FOR HER AND HAPPENS ON OCCASION. PT DENIES NEEDS AT THIS TIME. CHAIR ALARM ON AND CALL LIGHT IN REACH
--- NOTE | 2023-03-26 10:55 | NUR ---
PATIENT DOES NOT QUALIFY FOR HOME OXYGEN, SPO2 DID NOT DROP BELOW 96%.
[2023-03-26 11:36] VITALS: BP 102/82; PULSE 79; TEMP 98.4
--- NOTE | 2023-03-26 13:27 | NUR ---
PT TRANSFERRED FROM CHAIR TO BED INDEPENDENTLY. ACYCLOVIR STARTED IN PICC PURPLE PORT. PT DENIES NEEDS AT THIS TIME. CALL LIGHT IN REACH, BED ALARM ON, BED IN LOWEST POSITION.
[2023-03-26 15:04] VITALS: BP 112/58; PULSE 81; TEMP 98.7
[2023-03-26 15:20] VITALS: BP 110/43; PULSE 82; TEMP 98.5
--- NOTE | 2023-03-26 17:18 | NUR ---
PT STATES THAT SHE WOKE UP FROM A NAP ABOUT 30 MINS AGO WITH A HEADACHE, PT GIVEN PRN TYLENOL AND DENIES NEEDS AT THIS TIME
--- NOTE | 2023-03-26 19:27 | NUR ---
REPORT GIVEN TO ROCIO SAAVEDRA
[2023-03-26 20:53] VITALS: BP 114/97; PULSE 80; TEMP 98.7
[2023-03-27] VITALS (7 sets, daily range): BP systolic 114–1121; BP diastolic 51–77; PULSE 66–73; TEMP 98.4–98.6
--- NOTE | 2023-03-27 00:45 | NUR ---
patient lying in bed alert and oriented x3 with occasional slight confusion. pt denies chest pain and shortness of breath. PICC in EL is patent, site is clean dry and intact. small closed and slightly red right knee abrasion, bruising on left knee noted. pt has no further needs, questions, or concerns at this time. fall precautions in place, pt educated on using call light before getting up to use bathroom, pt verbally agree/understood. call light within reach. will continue to monitor.
--- NOTE | 2023-03-27 01:38 | NUR ---
Christina, BEAUTY SALES CONSULTANT notified by other RN or pt getting up out of bed. pt confused at this time not responding to commands, will push away and say "no", Christina in to assess pt at this time. Head CT ordered at this time.
[2023-03-27 06:30] LABS: CREATININE, serum 0.57 mg/dL (0.57-1.11); MAGNESIUM 1.3 mg/dL (1.6-2.6); POTASSIUM 3.2 mmol/L (3.5-4.5)
[2023-03-27 07:11] LABS: BASO % 0.2 % (0.0-2.0); EOS # 0.1 K/mm3 (0.0-0.7); EOS % 1.6 % (0.0-4.0); GRAN % 69.7 % (42.2-75.2); LYMPH # 0.7 K/mm3 (1.2-3.4); LYMPH % 15.2 % (20.0-51.0); MEAN CELL VOLUME 102 fl (80.0-100.0); MEAN CORPUSCULAR HGB CONC 33 g/dl (33.0-37.0); MEAN PLATELET VOLUME 9.1 fl (7.4-10.4); MONO # 0.6 K/mm3 (0.1-0.6); MONO % 12.6 % (1.7-9.3); PLATELET COUNT 211 K/mm3 (130-400); RED BLOOD COUNT 2.64 M/mm3 (4.10-5.30); REDCELL DISTRIBUTION WIDTH-CV 15.8 % (11.5-14.5)
[2023-03-27 07:23] LABS: HEMATOCRIT 26.9 % (37.0-47.0); HEMOGLOBIN 8.9 g/dl (12.5-16.0); MEAN CORPUSCULAR HEMOGLOBIN 34 pg (27-31)
--- NOTE | 2023-03-27 09:45 | NUR ---
PT SITTING IN CHAIR UPON ENTERING, AT BEDSIDE. ASSESSMENT DONE, MEDS GIVEN PER ORDER. PT DENIES PAIN OR SHORTNESS OF BREATH AT THIS TIME. NIGHT NURSE REPORTED A PERIOD OF CONFUSION THROUGHOUT THE NIGHT THAT SHORTLY AFTER RESOLVED. AT THIS TIME PT IS ORIENTED TO PERSON, PLACE AND TIME WITH SOME CONFUSION ABOUT SITUATION AND HAVING CONFUSED STATEMENTS TO MYSELF AND . CLAMPED DUAL LUMEN PICC TO RIGHT UPPER ARMS, BOTH PORTS FLUSH WELL WITH BLOOD RETURN. PT THAS BRUISING AND ABRASIONS TO BILATERAL KNEES, PT AND REPORTING A RECENT FALL DURING THIS HOSPITAL STAY. PT DENIES NEEDS AT THIS TIME. BED IN LOWEST POSITION, CALL LIGHT IN REACH, CHAIR ALARM ON N
--- NOTE | 2023-03-27 09:57 | NUR ---
MAGNESIUM STARTED PER ORDER IN PURPLE PORT.
[2023-03-27] MEDS ORDERED: TENORMIN 2525 MG/TAB PO (11:32)
[2023-03-27] MEDS ORDERED: APRESOLINE 10MG10 MG PO (11:34)
--- NOTE | 2023-03-27 11:53 | NUR ---
MAG INFUSION COMPLETE. PURPLE PORT FLUSHED AND CLAMPED. AND DAUGHTER AT BEDSIDE. PT IN A GOOD MOOD STATING THAT SHE IS LEAVING TODAY
--- NOTE | 2023-03-27 12:01 | NUR ---
DISCHARGE ORDER IN PLACE. CHUCKY VILLALBA CALLED AND ASKED IF PT IS LEAVING WITH PICC. CHUCKY RESPONDED NO AND THIS NURSE ASKED OR AN ORDER TO REMOVE PICC AND WAS TOLD THAT IT WOULD BE PUT IN. NO FURTHER ORDERS AT THIS TIME
--- NOTE | 2023-03-27 14:34 | NUR ---
PT SITTING IN CHAIR UPON ENTERING, AT BEDSIDE. PICC REMOVED BY AIVS, PT FOLLOWED 30 MINUTE FLAT TIME. DISCHARGE INSTRUCTIONS ON FOLLOW UP APPTS, THERAPIES, AND MEDICATIONS GIVEN TO PT AND . ALL QUESTIONS ANSWERED AND BOTH VERBALIZED UNDERSTANDING. PT ESCORTED TO PERSONAL VEHICLE VIA WHEELCHAIR BY SAIMA ARAIZA.
--- NOTE | 2023-03-27 15:36 | NUR ---
Manager Process Improvement spoke with Hospitalist who advised patient is ready for discharge home today with outpatient PT. SW met with patient and presented IM. Patient verbalized understanding and provided signature. SW placed form in chart and provided copy to patient. Patient advised her family secured her a walker and that she would like to do PT at [facility]. GEORGES contacted [facility] and faxed referral with orders. Deepthi at [facility] confirmed it was received and that they would contact patient to schedule. Discharge Plan: Home
[2023-03-27 16:08] LABS: HSV 2 DNA PCR QUAL Negative (Negative)
== END 2023-03-27 14:20 | disposition home or self-care (01) | DRG 871 ==
LOC: COL.ER 09:00 → ICU 11:14 → MEDICAL 03-23 13:55
PROVIDERS: Emergency Medicine; Internal Medicine; Internal Medicine Pulmonary Disease; Physician Assistant; ADMIT Internal Medicine
PROC: 5A1945Z Respiratory Ventilation, 24-96 Consecutive Hours (ICD-10-PCS; principal; 2023-03-19)
PROC: 0BH17EZ Insertion of Endotracheal Airway into Trachea, Via Natural or Artificial Opening (ICD-10-PCS; 2023-03-19)
DX: A41.9 Sepsis, unspecified organism (principal); G93.41 Metabolic encephalopathy; C79.81 Secondary malignant neoplasm of breast; E11.9 Type 2 diabetes mellitus without complications; Z79.4 Long term (current) use of insulin; I48.91 Unspecified atrial fibrillation; E03.9 Hypothyroidism, unspecified; D64.9 Anemia, unspecified; Z66 Do not resuscitate
CPT/HCPCS: A9575; C1751; C9113; J0133; J0290; J0330; J0360; J0696; J1100; J1200; J1630; J1650; J1815; J2060; J2405; J2704; J2765; J3010; J3370; J3475; J3480; J7030; J7050; J7120; Q3014

== ENCOUNTER 2023-03-28 12:29 | Observation (INO) | payer MEDICARE, BC ==
[~2023-03-28] VITALS: Ht 162.6 cm; Wt 79.2 kg
[~2023-03-28 12:29] MED LIST changes: +APRESOLINE 10MG10 MG PO; +COMPAZINE 110 MG/TAB PO; +GLUCOPHAGE XR500 M1 PO; +REQUIP 1MG T1 MG/TAB PO
[2023-03-28 13:49] LABS: BASO % 0.2 % (0.0-2.0); EOS % 0.6 % (0.0-4.0); GRAN # 3.9 K/mm3 (1.4-6.5); GRAN % 72.8 % (42.2-75.2); LYMPH # 0.8 K/mm3 (1.2-3.4); LYMPH % 14.3 % (20.0-51.0); MEAN CELL VOLUME 102 fl (80.0-100.0); MEAN CORPUSCULAR HGB CONC 34 g/dl (33.0-37.0); MEAN PLATELET VOLUME 9.4 fl (7.4-10.4); MONO # 0.6 K/mm3 (0.1-0.6); MONO % 11.5 % (1.7-9.3); PLATELET COUNT 219 K/mm3 (130-400); RED BLOOD COUNT 2.77 M/mm3 (4.10-5.30); REDCELL DISTRIBUTION WIDTH-CV 15.8 % (11.5-14.5)
[2023-03-28 13:57] LABS: HEMATOCRIT 28.2 % (37.0-47.0); HEMOGLOBIN 9.6 g/dl (12.5-16.0); MEAN CORPUSCULAR HEMOGLOBIN 35 pg (27-31)
[2023-03-28 14:11] LABS: BILIRUBIN,TOTAL 0.4 mg/dL (0.2-1.2); CALCIUM 9.1 mg/dL (8.4-10.2); CREATININE, serum 0.68 mg/dL (0.57-1.11); POTASSIUM 3.5 mmol/L (3.5-4.5); TOTAL PROTEIN 5.8 gm/dL (6.2-8.1)
--- NOTE | 2023-03-28 19:28 | NUR ---
ER attempted to call report at 1921. This nurse called back at 1922, report received at this time.
[2023-03-28 20:06] VITALS: BP 148/63; PULSE 68; TEMP 100.9
[2023-03-28 20:15] VITALS: BP_SYST 148
--- NOTE | 2023-03-28 21:29 | NUR ---
Patient arrived to medical unit at 1944 from ER. ER nurse Grecia and daniel brought patient, and this nurse as well as PCT met them in the room. Assisted into bed with slide board. Patient at first drowsy, not answering questions. assisted with admission. Does not know the exact medications or doses that patient takes, so med rec was not able to be completed. Stated she was just here yesterday so it should be up to date, but would bring discharge paperwork tomorrow from home. Patient at first would not drink anything, so medications were not given, but patient is alert and oriented x 4 at this time, able to drink, took all medications, and ate an applesauce. Blood cultures obtained, then started on IV fluids and ABX per orders to port to right chest. RT placed patient on oxygen 2.5 L/min via NC, as patient usually uses CPAP at night. LS CTA. HRR. BSAx4. Reports having diarrhea today. No edema. Patient has bruising to bilateral knees from fall. Has dressing to old PICC line site to RUE. Voices no questions, needs, or concerns at this time. In bed with call light within reach. High fall risk precautions in place. Bed alarm on.
[2023-03-28 21:55] LABS: AMORPHOUS CRYSTAL Present (NOT PRESENT); COLLECTION METHOD CLEAN CATCH; PH 8.5 (5.0-8.5); URINE APPEARANCE Turbid (CLEAR/HAZY); URINE BLOOD Negative (NEGATIVE); URINE COLOR Yellow (YELLOW); URINE GLUCOSE Negative (NEGATIVE); URINE KETONE 1+ (NEGATIVE); URINE NITRATE Negative (NEGATIVE); URINE PROTEIN(semi-quant) Negative (NEGATIVE); URINE RBC 0-2 /hpf (0-2); URINE UROBILINOGEN 0.2 E.U/dL (0.2-1.0)
[2023-03-28 23:44] VITALS: BP 143/65; PULSE 63; TEMP 98.1
[2023-03-29] VITALS (12 sets, daily range): BP systolic 143–171; BP diastolic 71–84; PULSE 55–63; TEMP 98.1–98.4
--- NOTE | 2023-03-29 06:08 | NUR ---
Patient able to get some rest during the night. Has gotten up to use bathroom a few times. One assist with bedside commode. Patient alert and oriented x 4, and talkative this morning. Denies having pain and discomfort. Voices no questions, needs, or concerns at this time. In bed with call light within reach. High fall risk precautions in place. Continues on IV fluids per orders.
[2023-03-29 08:34] LABS: BASO % 0.5 % (0.0-2.0); EOS # 0.1 K/mm3 (0.0-0.7); EOS % 1.2 % (0.0-4.0); GRAN # 2.7 K/mm3 (1.4-6.5); GRAN % 64.1 % (42.2-75.2); HEMATOCRIT 27.3 % (37.0-47.0); HEMOGLOBIN 8.9 g/dl (12.5-16.0); LYMPH # 0.8 K/mm3 (1.2-3.4); LYMPH % 17.9 % (20.0-51.0); MEAN CELL VOLUME 104 fl (80.0-100.0); MEAN CORPUSCULAR HEMOGLOBIN 34 pg (27-31); MEAN CORPUSCULAR HGB CONC 33 g/dl (33.0-37.0); MEAN PLATELET VOLUME 9.6 fl (7.4-10.4); MONO # 0.7 K/mm3 (0.1-0.6); MONO % 15.8 % (1.7-9.3); PLATELET COUNT 208 K/mm3 (130-400); RED BLOOD COUNT 2.63 M/mm3 (4.10-5.30)
--- NOTE | 2023-03-29 09:23 | NUR ---
Patient alert and oriented x4, states she is feeling better from yesterday. States she woke up and "suddenly she felt clear." Denies pain at this time, but states yesterday she had a headache. Ambulating from bed to bathroom, gait is somewhat unsteady. Encouraged to call for help. Family at bedside. NS running per orders through port to right side of chest. Fall precautions in place, all needs met at this time.
[2023-03-29 10:52] LABS: CALCIUM 8.7 mg/dL (8.4-10.2); CREATININE, serum 0.64 mg/dL (0.57-1.11); POTASSIUM 3.1 mmol/L (3.5-4.5)
--- NOTE | 2023-03-29 11:07 | NUR ---
Patient complains of headache beginning in holiness, PRN Tylenol administered. Patient tolerating PT/OT well. Resting in bed at this time, family at bedside.
--- NOTE | 2023-03-29 11:20 | NUR ---
Data: Patient had been in hospital, discharged 03/27/23, and is now back in hospital. Alexander and Daughter Mago are visiting. Daughter Mago was somewhat tearful. Assessment: and Daughter are saddened by Patient's health setback. Plan of Care: Crochet Beader prayed for healing and expressed gratitude for Patient's Family.
--- NOTE | 2023-03-29 13:28 | NUR ---
Patient remains stable, continues to ambulate frequently to bathroom. One loose stool noted. Patient has low appetite and only ate a few bites of lunch. Family still at bedside. Patient care handed off to ROCIO Stevenson at this time.
--- NOTE | 2023-03-29 15:11 | NUR ---
PT RESTING IN BED WITH NO PAIN AT THIS TIME. A/O X4, VITALS STABLE, STEADY GAIT, ROOM AIR, FAMILY AT BEDSIDE. WILL CONTINUE TO MONITOR.
--- NOTE | 2023-03-29 15:31 | NUR ---
SW met with patient and family (daughters and ) were present, and supported patient with intake process. SW was informed contact information was current with [facility] as spouse Alexander Cadet [phone]. Patient PCP is Dr Delgadillo. Patient has been limited with ADLs and had outpatient PT with recent d/c. Patient utlizes walker, CPAP currently no additional DME's were reported during intake process. Family inquired about DPOA forms to be completed with patient, daughter expressed concern about mental state of patient. SW would revisit with family about forms after they have time to review.
[2023-03-30 01:00] VITALS: BP_SYST 162
--- NOTE | 2023-03-30 02:03 | NUR ---
NURSING SHIFT ASSESSMENT COMPLETED. THE PATIENT IS ALERT, ORIENTED, BUT FORGETFUL. THE PATIENTS SPOUSE AT BEDSIDE. THE PLAN OF CARE AND EVENING MEDICATIONS REVIEWED. QUESTIONS ANSWERED. THE PATIENT TOOK A SHOWER AND CLEAN SHEETS PLACED ON THE BED. THE PATIENT DENIED PAIN OR DISCOMFORT. THE BED ALARM IS ON. THE PATIENT RARELY USES THE CALL LIGHT AND HAS URINARY FREQUENCY AND IS SETTING THE BED ALARM OFF FREQUENTLY. THE PATIENT USES A WALKER AND DOES NEED ASSISTANCE. THE PATIENT HAD AN INPATIENT FALL RECENTLY. CALL LIGHT WITHIN REACH, BUT RARELY USED, BED IN LOW POSITION, BED ALARM ON, PATIENT REMINDED TO CALL FOR HELP. FALL RISK INTERVENTIONS IN PLACE.
[2023-03-30 03:42] VITALS: BP 168/82; PULSE 62; TEMP 97.2
[2023-03-30 06:05] VITALS: BP_SYST 168
[2023-03-30 07:54] VITALS: BP 160/75; PULSE 61; TEMP 97.7
--- NOTE | 2023-03-30 08:30 | NUR ---
PT SITTING IN CHAIR UPON ENTERING, AT BEDSIDE. ASSESSMENT DONE, MEDS GIVEN PER ORDER. PT DENIES PAIN AT THIS TIME. PT ORIENTED TO PERSON, PLACE AND TIME BUT UNAWARE OF HOW OR WHY SHE WAS BROUGHT IN TO THE HOSPITAL. BILATERAL KNEE BRUISES FROM FALL DURING RECENT HOSPITAL STAY. RIGHT CHEST PORT ACCESSED WITH NORMAL SALINE RUNNING AT 75 MLS/HR PER ORDER. ORDERING BREAKFAST AND PT DENIES NEEDS AT THIS TIME. CHAIR ALARM ON, CALL LIGHT IN REACH
[2023-03-30 09:00] VITALS: BP_SYST 160
--- NOTE | 2023-03-30 10:04 | NUR ---
IV FLUIDS DC'D PER ORDER. PORT FLUSHED AND CLAMPED. PT DENIES NEEDS AT THIS TIME. CHAIR ALARM ON AND CALL LIGHT IN REACH
[2023-03-30] MEDS ORDERED: DECADRON 4MG TAB4 MG PO ×3 (11:06→15:52)
[2023-03-30] MEDS ORDERED: PRIL40 PO ×2 (11:06)
[2023-03-30] MEDS ORDERED: OMNICEF 300MG300 MG PO ×2 (11:07)
[2023-03-30] MEDS ORDERED: ROXANOL 20MG20 MG/ML SL ×3 (11:08→14:46)
[2023-03-30] MEDS ORDERED: ZOFRAN ODT4 MG PO ×2 (11:08)
[2023-03-30] MEDS ORDERED: ATIVAN 1MG T1 MG/TAB PO ×3 (11:08→14:46)
--- NOTE | 2023-03-30 11:30 | NUR ---
Tub Attendant was contacted by [facility] Stevenson who advised patient wishes to return home with hospice services. GEORGES met with patient and her spouse, Alexander at bedside and provided [email or web address] list of hospice providers. Alexander advised his sister works at [facility]. Patient stated she would like to use [facility] and return home today if possible. Patient is not on any oxygen and can return home via private care. GEORGES contacted [facility] at [facility] and faxed referral. [facility] made contact with patient and Alexander, then notified [facility] that they can start services today. GEORGES notified [facility] then faxed discharge orders to [facility]. GEORGES collaborated with Alexander and bedside nurse to determine an approximate time fo discharge. GEORGES notified [facility] who advised they would do an admission at patient's home this afternoon. GEORGES contacted Alexander again who confirmed he had no further questions for this SW. Discharge Plan; Home with [facility]
[2023-03-30 11:35] VITALS: BP 151/63; PULSE 61; TEMP 97.3
--- NOTE | 2023-03-30 12:00 | NUR ---
PT DRESSED IN PERSONAL CLOTHES, AT BEDSIDE. PT AND GIVEN DISCHARGE INSTRUCTIONS, BOTH VERBALIZED UNDERSTANDING. PT PORT FLUSHED WITH NORMAL SALINE THEN HEPARIN FLUSH. PORT DEACCESSED AND SITE COVERED WITH GAUZE AND TEGADERM. PT DENIES NEEDS AT THIS TIME AND ESCORTED TO PERSONAL VEHICLE VIA WHEELCHIAR BY SAIMA PIERRE.
== END 2023-03-30 12:10 | disposition home or self-care (01) ==
LOC: COL.ER 12:29 → MEDICAL 17:33
PROVIDERS: Emergency Medicine; Physician Assistant; ADMIT Internal Medicine
DX: G93.40 Encephalopathy, unspecified (principal); C50.912 Malignant neoplasm of unspecified site of left female breast; C78.7 Secondary malignant neoplasm of liver and intrahepatic bile duct; D63.0 Anemia in neoplastic disease; R51.9 Headache, unspecified; E11.9 Type 2 diabetes mellitus without complications; Z66 Do not resuscitate; E03.9 Hypothyroidism, unspecified; I10 Essential (primary) hypertension; D84.9 Immunodeficiency, unspecified; R53.81 Other malaise; I49.8 Other specified cardiac arrhythmias; Z79.84 Long term (current) use of oral hypoglycemic drugs; Z86.718 Personal history of other venous thrombosis and embolism; Z79.01 Long term (current) use of anticoagulants; Z79.890 Hormone replacement therapy
CPT/HCPCS: C9113; G0378; J0696; J1200; J1644; J1790; J1815; J1885; J7030; J7120; J8540